=== PATIENT | female | born 1965 | race Caucasian/White ===

== ENCOUNTER → 2017-09-13 | Outpatient (CLI) | payer OTHER ==
[~2017-09-13] MED LIST: CEFAZOLIN 1 GM INJ; CEFAZOLIN 2 GM/50 ML (PMX) 50 ML IVPB; INSULIN ASPART [NOVOLOG] 3 ML PEN IV; INSULIN REGULAR, HUMAN 100 UNIT/1 ML 3ML VIAL; MIDAZOLAM 1 MG/ML 2 ML INJ; PROPOFOL 0 ML; ROCURONIUM 50 MG INJ; ROPIVACAINE 0.5 % 30 ML VIAL; SOD CHLORIDE 0.9% 1,000 ML IV
[2017-09-13 10:29] LABS: ADD MAN DIFF? NO
[2017-09-13 10:31] LABS: WHITE BLOOD COUNT 6.5 10^3/ul (4.8-10.8)
[2017-09-13 10:31] LABS: BASOPHILS % 0.5 % (0.0-2.0); EOSINOPHILS # 0.2 10^3/ul (0.0-0.5); EOSINOPHILS % 3.2 % (0.0-7.0); HEMATOCRIT 36.3 % (37.0-47.0); HEMOGLOBIN 12.5 g/dl (12.0-16.0); LYMPHOCYTES # 2.2 10^3/ul (0.8-2.9); LYMPHOCYTES % 33.2 % (15.0-51.0); MEAN CORPUSCULAR HEMOGLOBIN 27.7 pg (29.0-33.0); MEAN CORPUSCULAR HGB CONC 34.4 g/dl (32.0-37.0); MEAN CORPUSCULAR VOLUME 80.5 fl (82.0-101.0); MEAN PLATELET VOLUME 10.5 fl (7.4-10.4); MONOCYTE # 0.4 10^3/ul (0.3-0.9); MONOCYTES % 6.3 % (0.0-11.0); NEUTROPHIL # 3.7 10^3/ul (1.6-7.5); NEUTROPHILS % 56.6 % (39.0-77.0); PLATELET COUNT 340 10^3/UL (140-415); RED BLOOD COUNT 4.51 10^6/ul (4.20-5.40); RED CELL DISTRIBUTION WIDTH 12.4 % (11.5-14.5)
[2017-09-13] MEDS: INSULIN REGULAR, HUMAN 100 UNIT/1 ML 3ML VIAL IV ×2 (10:41→11:17)
[2017-09-13 10:52] LABS: ALANINE AMINOTRANSFERASE 16 IU/L (13-69); ALBUMIN 3.9 g/dl (3.3-4.9); ALBUMIN/GLOBULIN RATIO 1.18; ALKALINE PHOSPHATASE 139 IU/L (42-121); ANION GAP 13 (8-16); ASPARTATE AMINO TRANSFERASE 13 IU/L (15-46); BILIRUBIN,INDIRECT 0.3 mg/dl (0-1.1); BILIRUBIN,TOTAL 0.3 mg/dl (0.2-1.3); CARBON DIOXIDE 31 mmol/L (21-31); CHLORIDE 98 mmol/L (97-110); TOTAL PROTEIN 7.2 g/dl (6.1-8.1)
[2017-09-13 10:59] LABS: PROTIME 11.1 Sec (11.9-14.9); PT RATIO 0.9
[2017-09-13 11:05] LABS: BLOOD UREA NITROGEN 15 mg/dl (7-20); CALCIUM 9.6 mg/dl (8.4-10.2); CREATININE 0.87 mg/dl (0.44-1.00); POTASSIUM 4.9 mmol/L (3.5-5.1); SODIUM 137 mmol/L (135-144)
[2017-09-13 11:06] LABS: GLUCOSE 458 mg/dl (70-220)
[2017-09-13 12:20] LABS: HEMOGLOBIN A1C 12.1 % (0-5.9)
== END | disposition home or self-care (01) ==
LOC: SDS 09:02 → LAB 09:02
DX: Z01.818 Encounter for other preprocedural examination (principal)
CPT/HCPCS: 71045; 80053; 82962; 83036; 85025; 85610; 85730; 93005

== ENCOUNTER 2017-10-14 07:41 | Inpatient (IN) | payer OTHER ==
[2017-10-14] MEDS: SOD CHLORIDE 0.9% 1,000 ML IV (06:00)
[~2017-10-14 07:41] MED LIST changes: -CEFAZOLIN 1 GM INJ; -INSULIN ASPART [NOVOLOG] 3 ML PEN IV; -INSULIN REGULAR, HUMAN 100 UNIT/1 ML 3ML VIAL; -MIDAZOLAM 1 MG/ML 2 ML INJ; -PROPOFOL 0 ML; -ROPIVACAINE 0.5 % 30 ML VIAL; -SOD CHLORIDE 0.9% 1,000 ML IV
[2017-10-14] MEDS ORDERED: ROCURONIUM 50 MG INJ (08:07)
[2017-10-14] MEDS ORDERED: PROPOFOL 20 ML (08:07)
[2017-10-14] MEDS ORDERED: CEFAZOLIN 1 GM INJ (08:10)
[2017-10-14] MEDS ORDERED: ONDANSETRON 4 MG INJ ×2 (08:10→10:28)
[2017-10-14] MEDS ORDERED: DEXAMETHASONE 4 MG/ML 1 ML INJ ×2 (08:11→10:28)
[2017-10-14] MEDS ORDERED: FENTAnyl 50 MCG/ML VIAL (08:23)
[2017-10-14 08:33] LABS: ADD MAN DIFF? NO
[2017-10-14 08:48] LABS: BASOPHILS % 0.5 % (0.0-2.0); EOSINOPHILS # 0.2 10^3/ul (0.0-0.5); EOSINOPHILS % 1.9 % (0.0-7.0); HEMATOCRIT 36.7 % (37.0-47.0); HEMOGLOBIN 12.3 g/dl (12.0-16.0); LYMPHOCYTES # 2.6 10^3/ul (0.8-2.9); LYMPHOCYTES % 32.2 % (15.0-51.0); MEAN CORPUSCULAR HEMOGLOBIN 27.9 pg (29.0-33.0); MEAN CORPUSCULAR HGB CONC 33.5 g/dl (32.0-37.0); MEAN CORPUSCULAR VOLUME 83.2 fl (82.0-101.0); MEAN PLATELET VOLUME 10.2 fl (7.4-10.4); MONOCYTE # 0.5 10^3/ul (0.3-0.9); MONOCYTES % 6.8 % (0.0-11.0); NEUTROPHIL # 4.6 10^3/ul (1.6-7.5); NEUTROPHILS % 58.3 % (39.0-77.0); PLATELET COUNT 338 10^3/UL (140-415); RED BLOOD COUNT 4.41 10^6/ul (4.20-5.40); RED CELL DISTRIBUTION WIDTH 12.8 % (11.5-14.5)
[2017-10-14 08:48] LABS: WHITE BLOOD COUNT 7.9 10^3/ul (4.8-10.8)
[2017-10-14 09:05] LABS: INR 0.82; PARTIAL THROMBOPLASTIN TIME 26.7 Sec (25.0-35.0); PROTIME 11.4 Sec (11.9-14.9); PT RATIO 0.9
[2017-10-14 09:08] LABS: ALANINE AMINOTRANSFERASE 18 IU/L (13-69); ALBUMIN 4.2 g/dl (3.3-4.9); ALBUMIN/GLOBULIN RATIO 1.23; ALKALINE PHOSPHATASE 98 IU/L (42-121); ANION GAP 18 (8-16); ASPARTATE AMINO TRANSFERASE 15 IU/L (15-46); BILIRUBIN,INDIRECT 0.5 mg/dl (0-1.1); BILIRUBIN,TOTAL 0.5 mg/dl (0.2-1.3); BLOOD UREA NITROGEN 27 mg/dl (7-20); CALCIUM 9.1 mg/dl (8.4-10.2); CARBON DIOXIDE 29 mmol/L (21-31); CHLORIDE 102 mmol/L (97-110); GLUCOSE 210 mg/dl (70-220); POTASSIUM 4.9 mmol/L (3.5-5.1); SODIUM 144 mmol/L (135-144); TOTAL PROTEIN 7.6 g/dl (6.1-8.1)
[2017-10-14] MEDS ORDERED: ROPIVACAINE 0.2% 20 ML VIAL (09:26)
[2017-10-14] MEDS ORDERED: MIDAZOLAM 1 MG/ML 2 ML INJ (09:28)
[2017-10-14] MEDS ORDERED: FENTAnyl 50 MCG/ML VIAL IV ×4 (09:30→10:30)
[2017-10-14] MEDS ORDERED: KETOROLAC 30 MG INJ IV (09:30)
[2017-10-14] MEDS ORDERED: ONDANSETRON 4 MG INJ IV ×3 (09:30→11:30)
[2017-10-14] MEDS ORDERED: PHENYLephrine (100 MCG/ML) 5ML SYG (09:35)
[2017-10-14] MEDS ORDERED: LABETALOL HCL 20MG INJ (10:00)
[2017-10-14] MEDS ORDERED: HYDROmorphONE 2 MG/ML SYG (10:04)
[2017-10-14] MEDS: SODIUM CHLORIDE 0.9% 1L IRRIG IRR (10:24)
[2017-10-14] MEDS ORDERED: SUGAMMADEX SODIUM 200 MG/2 ML VIAL IV ×2 (10:28→10:46)
[2017-10-14] MEDS ORDERED: ACETAMINOPHEN 1000MG/100ML IV 100 ML (10:28)
[2017-10-14] MEDS ORDERED: KETOROLAC 30 MG INJ (10:28)
[2017-10-14] MEDS ORDERED: METOCLOPRAMIDE 10 MG INJ (10:28)
[2017-10-14] MEDS ORDERED: EPHEDrine SULFATE 50 MG/5 ML SYG IV (10:30)
[2017-10-14] MEDS ORDERED: DIPHENHYDRAMINE 50 MG INJ IV (10:30)
[2017-10-14] MEDS ORDERED: OXYCODONE/ACETAMINOPHEN (5/325) TAB PO ×2 (10:30)
[2017-10-14] MEDS ORDERED: ALBUMIN HUMAN 5% 250 ML IV (10:30)
[2017-10-14] MEDS ORDERED: METOCLOPRAMIDE 10 MG INJ IV (10:30)
[2017-10-14] MEDS ORDERED: HYDROmorphONE (0.2 MG/ML) 10ML SYG IV ×3 (10:30)
[2017-10-14] MEDS ORDERED: hydrALAzine 20 MG INJ IV (10:30)
[2017-10-14] MEDS ORDERED: LABETALOL HCL 20MG INJ IV (10:30)
[2017-10-14] MEDS: MEPERIDINE 25 MG INJ IV (11:25)
[2017-10-14] MEDS ORDERED: ACETAMINOPHEN 1000MG/100ML IV 100 ML IVPB (11:30)
[2017-10-14] MEDS: HYDROmorphONE (0.2 MG/ML) 10ML SYG IV ×2 (12:19→12:31)
[2017-10-14 12:50] LABS: HEMOGLOBIN A1C 11.6 % (0-5.9)
[2017-10-14] MEDS ORDERED: ALBUTEROL/IPRATROPIUM (NEB) 3 ML AMP HHN (13:00)
[2017-10-14] MEDS ORDERED: GLUCAGON 1 MG INJ IM (13:30)
[2017-10-14] MEDS ORDERED: DEXTROSE 50% 50 ML SYRINGE IV ×2 (13:30)
[2017-10-14] MEDS ORDERED: GLUCOSE GEL 15 GRAM TUBE PO ×2 (13:30)
[2017-10-14] MEDS ORDERED: GLUCOSE GEL 15 GRAM TUBE BUCCAL (13:30)
[2017-10-14] MEDS: morphine 2 MG INJ IV ×2 (14:09→17:18)
[2017-10-14] MEDS: HYDROCODONE/APAP (5/325) TAB PO (15:52)
[2017-10-14] MEDS: D5W-0.45 NACL + KCL 20 MEQ 1,000 ML IV ×2 (15:53→19:05)
[2017-10-14] MEDS: metFORMIN 500 MG TAB PO (17:17)
[2017-10-14] MEDS: INSULIN ASPART [NOVOLOG] 3 ML PEN SC ×2 (17:21→20:59)
[2017-10-14] MEDS: ATORVASTATIN 10 MG TAB PO (20:53)
[2017-10-14] MEDS: GABAPENTIN 300 MG CAP PO (20:53)
[2017-10-14] MEDS: SOD CHLORIDE 0.45% 1,000 ML IV (22:22)
[2017-10-15] MEDS: morphine 2 MG INJ IV ×5 (01:41→21:58)
[2017-10-15 05:49] LABS: ADD MAN DIFF? NO
[2017-10-15 05:56] LABS: WHITE BLOOD COUNT 12.3 10^3/ul (4.8-10.8)
[2017-10-15 05:57] LABS: BASOPHILS % 0.2 % (0.0-2.0); EOSINOPHILS % 0.2 % (0.0-7.0); HEMATOCRIT 32.2 % (37.0-47.0); HEMOGLOBIN 10.7 g/dl (12.0-16.0); LYMPHOCYTES # 3.5 10^3/ul (0.8-2.9); LYMPHOCYTES % 28.8 % (15.0-51.0); MEAN CORPUSCULAR HEMOGLOBIN 28.2 pg (29.0-33.0); MEAN CORPUSCULAR HGB CONC 33.2 g/dl (32.0-37.0); MEAN CORPUSCULAR VOLUME 84.7 fl (82.0-101.0); MEAN PLATELET VOLUME 10.3 fl (7.4-10.4); MONOCYTE # 0.8 10^3/ul (0.3-0.9); MONOCYTES % 6.5 % (0.0-11.0); NEUTROPHIL # 7.8 10^3/ul (1.6-7.5); NEUTROPHILS % 63.9 % (39.0-77.0); PLATELET COUNT 308 10^3/UL (140-415); RED CELL DISTRIBUTION WIDTH 12.9 % (11.5-14.5)
[2017-10-15 06:20] LABS: ANION GAP 15 (8-16); BLOOD UREA NITROGEN 18 mg/dl (7-20); CALCIUM 8.4 mg/dl (8.4-10.2); CARBON DIOXIDE 27 mmol/L (21-31); CHLORIDE 107 mmol/L (97-110); CREATININE 0.76 mg/dl (0.44-1.00); GLUCOSE 138 mg/dl (70-220); POTASSIUM 4.5 mmol/L (3.5-5.1); SODIUM 144 mmol/L (135-144)
[2017-10-15] MEDS: INSULIN ASPART [NOVOLOG] 3 ML PEN SC ×4 (07:50→21:00)
[2017-10-15] MEDS: metFORMIN 500 MG TAB PO ×2 (08:34→17:57)
[2017-10-15] MEDS: PANTOPRAZOLE (EC) 40 MG TAB PO (08:34)
[2017-10-15] MEDS: CITALOPRAM 20 MG TAB PO (08:35)
[2017-10-15] MEDS: glipiZIDE 5 MG TAB PO (08:35)
[2017-10-15] MEDS: BENAZEPRIL 20 MG TAB PO (08:36)
[2017-10-15] MEDS: INSULIN GLARGINE [LANtus] 3 ML PEN SC (08:39)
[2017-10-15] MEDS: SOD CHLORIDE 0.45% 1,000 ML IV ×2 (08:41→21:10)
[2017-10-15] MEDS: GABAPENTIN 300 MG CAP PO (21:11)
[2017-10-15] MEDS: ATORVASTATIN 10 MG TAB PO (21:11)
[2017-10-16] MEDS: HYDROCODONE/APAP (5/325) TAB PO (00:05)
[2017-10-16] MEDS: SOD CHLORIDE 0.45% 1,000 ML IV ×2 (04:00→14:00)
[2017-10-16 05:52] LABS: ADD MAN DIFF? NO
[2017-10-16 05:57] LABS: WHITE BLOOD COUNT 10.2 10^3/ul (4.8-10.8)
[2017-10-16 05:57] LABS: BASOPHILS % 0.3 % (0.0-2.0); EOSINOPHILS # 0.1 10^3/ul (0.0-0.5); EOSINOPHILS % 0.9 % (0.0-7.0); HEMATOCRIT 31.3 % (37.0-47.0); HEMOGLOBIN 10.4 g/dl (12.0-16.0); LYMPHOCYTES # 3.1 10^3/ul (0.8-2.9); LYMPHOCYTES % 30.3 % (15.0-51.0); MEAN CORPUSCULAR HEMOGLOBIN 28.4 pg (29.0-33.0); MEAN CORPUSCULAR HGB CONC 33.2 g/dl (32.0-37.0); MEAN CORPUSCULAR VOLUME 85.5 fl (82.0-101.0); MEAN PLATELET VOLUME 10.2 fl (7.4-10.4); MONOCYTE # 0.6 10^3/ul (0.3-0.9); MONOCYTES % 6.1 % (0.0-11.0); NEUTROPHIL # 6.4 10^3/ul (1.6-7.5); PLATELET COUNT 284 10^3/UL (140-415); RED BLOOD COUNT 3.66 10^6/ul (4.20-5.40); RED CELL DISTRIBUTION WIDTH 12.8 % (11.5-14.5)
[2017-10-16 06:50] LABS: ALANINE AMINOTRANSFERASE 28 IU/L (13-69); ALBUMIN/GLOBULIN RATIO 1.07; ALKALINE PHOSPHATASE 71 IU/L (42-121); ANION GAP 8 (8-16); ASPARTATE AMINO TRANSFERASE 33 IU/L (15-46); BILIRUBIN,INDIRECT 0.3 mg/dl (0-1.1); BILIRUBIN,TOTAL 0.3 mg/dl (0.2-1.3); BLOOD UREA NITROGEN 11 mg/dl (7-20); CALCIUM 8.1 mg/dl (8.4-10.2); CARBON DIOXIDE 31 mmol/L (21-31); CHLORIDE 107 mmol/L (97-110); CREATININE 0.76 mg/dl (0.44-1.00); GLUCOSE 246 mg/dl (70-220); POTASSIUM 4.9 mmol/L (3.5-5.1); SODIUM 141 mmol/L (135-144); TOTAL PROTEIN 5.8 g/dl (6.1-8.1)
[2017-10-16] MEDS: PANTOPRAZOLE (EC) 40 MG TAB PO (08:08)
[2017-10-16] MEDS: CITALOPRAM 20 MG TAB PO (08:09)
[2017-10-16] MEDS: metFORMIN 500 MG TAB PO (08:09)
[2017-10-16] MEDS: BENAZEPRIL 20 MG TAB PO (08:09)
[2017-10-16] MEDS: glipiZIDE 5 MG TAB PO (08:09)
[2017-10-16] MEDS: morphine 2 MG INJ IV ×3 (08:10→15:58)
[2017-10-16] MEDS: INSULIN ASPART [NOVOLOG] 3 ML PEN SC ×2 (08:14→12:03)
[2017-10-16] MEDS: INSULIN GLARGINE [LANtus] 3 ML PEN SC (08:16)
== END 2017-10-16 16:55 | disposition home or self-care (01) | DRG 416 ==
LOC: SDS 07:41 → REC 11:06 → MS2 12:55
PROVIDERS: Surgery Surgical Oncology
PROC: 0FT40ZZ Resection of Gallbladder, Open Approach (ICD-10-PCS; principal; 2017-10-14 09:00)
PROC: 0FJ44ZZ Inspection of Gallbladder, Percutaneous Endoscopic Approach (ICD-10-PCS; 2017-10-14 09:00)
DX: K80.20 Calculus of gallbladder without cholecystitis without obstruction (principal); I10 Essential (primary) hypertension; E11.9 Type 2 diabetes mellitus without complications; E78.5 Hyperlipidemia, unspecified; F32.9 Major depressive disorder, single episode, unspecified; Z53.31 Laparoscopic surgical procedure converted to open procedure; Z79.4 Long term (current) use of insulin
CPT/HCPCS: 71045; 72170; 74018; 80048; 80053; 82962; 83036; 85025; 85610; 85730; 88304; 93005

== ENCOUNTER 2018-10-17 12:43 | Emergency (ER) | payer OTHER ==
[2018-10-17 15:08] LABS: ADD MAN DIFF? NO
[2018-10-17 15:09] LABS: MODE ROOM AIR; MetHgb Venous 0.3 %; Sample Type Blood venous; Site VENOUS LINE; Venous COHb 0.3 %; Venous Fraction OxyHgb 76.8 %; Venous Oxygen Sat 77.3 mmHG (55.0-75.0); Venous Total Hemglobin 11.5 g/dl
[2018-10-17] MEDS: SOD CHLORIDE 0.9% 600 ML IV (15:09)
[2018-10-17 15:11] LABS: BASOPHIL # 0.1 10^3/ul (0.0-0.1); BASOPHILS % 0.6 % (0.0-2.0); EOSINOPHILS % 0.4 % (0.0-7.0); HEMATOCRIT 38.7 % (37.0-47.0); HEMOGLOBIN 13.4 g/dl (12.0-16.0); LYMPHOCYTES # 3.3 10^3/ul (0.8-2.9); LYMPHOCYTES % 42.4 % (15.0-51.0); MEAN CORPUSCULAR HEMOGLOBIN 27.1 pg (29.0-33.0); MEAN CORPUSCULAR HGB CONC 34.6 g/dl (32.0-37.0); MEAN CORPUSCULAR VOLUME 78.2 fl (82.0-101.0); MEAN PLATELET VOLUME 10.5 fl (7.4-10.4); MONOCYTE # 0.5 10^3/ul (0.3-0.9); MONOCYTES % 6.7 % (0.0-11.0); NEUTROPHIL # 3.9 10^3/ul (1.6-7.5); NEUTROPHILS % 49.6 % (39.0-77.0); PLATELET COUNT 311 10^3/UL (140-415); RED BLOOD COUNT 4.95 10^6/ul (4.20-5.40); RED CELL DISTRIBUTION WIDTH 12.7 % (11.5-14.5)
[2018-10-17 15:11] LABS: WHITE BLOOD COUNT 7.8 10^3/ul (4.8-10.8)
[2018-10-17] MEDS ORDERED: INSULIN REGULAR 10 ML INJ IV (15:29)
[2018-10-17 15:33] LABS: PROTIME 11.2 Sec (11.9-14.9); PT RATIO 0.9
[2018-10-17 15:34] LABS: ALANINE AMINOTRANSFERASE 23 IU/L (13-69); ALBUMIN 3.5 g/dl (3.3-4.9); ALKALINE PHOSPHATASE 138 IU/L (42-121); ANION GAP 10 (5-13); ASPARTATE AMINO TRANSFERASE 23 IU/L (15-46); BILIRUBIN,INDIRECT 0.5 mg/dl (0-1.1); BILIRUBIN,TOTAL 0.5 mg/dl (0.2-1.3); BLOOD UREA NITROGEN 15 mg/dl (7-20); CALCIUM 8.5 mg/dl (8.4-10.2); CARBON DIOXIDE 30 mmol/L (21-31); CHLORIDE 90 mmol/L (97-110); CREATININE 0.55 mg/dl (0.44-1.00); Estimated GFR > 60 mL/min (>60); MAGNESIUM 1.6 mg/dl (1.7-2.5); PARTIAL THROMBOPLASTIN TIME 22.2 Sec (23.0-35.0); PHOSPHORUS 3.9 mg/dl (2.5-4.9); POTASSIUM 3.8 mmol/L (3.5-5.1); SODIUM 130 mmol/L (135-144); TOTAL PROTEIN 6.4 g/dl (6.1-8.1)
[2018-10-17 15:50] LABS: GLUCOSE 635 mg/dl (70-220)
[2018-10-17 15:53] LABS: TROPONIN-I < 0.010 ng/ml (0.000-0.120)
[2018-10-17] MEDS: INSULIN LISPRO 100 UNIT/ML VIAL SC (16:03)
[2018-10-17] MEDS: INSULIN REGULAR, HUMAN 100 UNIT/1 ML 3ML VIAL IV (16:05)
[2018-10-17 17:19] LABS: ADD UMIC YES; UR ASCORBIC ACID NEGATIVE (NEGATIVE); UR BACTERIA FEW /HPF (NONE SEEN); UR BILIRUBIN (Dip) NEGATIVE (NEGATIVE); UR BLOOD (Dip) NEGATIVE (NEGATIVE); UR CLARITY CLEAR (CLEAR); UR COLOR STRAW (YELLOW); UR GLUCOSE (Dip) 3+ mg/dL (NEGATIVE); UR KETONES (Dip) TRACE mg/dL (NEGATIVE); UR LEUKOCYTE ESTERASE (Dip) NEGATIVE Leu/ul (NEGATIVE); UR NITRITE (Dip) NEGATIVE (NEGATIVE); UR RBC 1 /HPF (0-5); UR SPECIFIC GRAVITY (Dip) 1.022 (1.003-1.030); UR SQUAMOUS EPITHELIAL CELL FEW /HPF (FEW); UR TOTAL PROTEIN (Dip) 1+ mg/dl (NEGATIVE); UR UROBILINOGEN (Dip) NEGATIVE (NEGATIVE); UR WBC 4 /HPF (0-5)
[2018-10-17] MEDS ORDERED: INSULIN LISPRO 100 UNIT/ML VIAL SC (18:06)
== END 2018-10-17 18:35 | disposition home or self-care (01) ==
LOC: E/R 12:43
DX: E11.65 Type 2 diabetes mellitus with hyperglycemia (principal); I10 Essential (primary) hypertension; Z79.4 Long term (current) use of insulin
CPT/HCPCS: 36415; 80053; 81001; 82803; 82962; 83735; 84100; 84484; 85025; 85610; 85730; 96372; 96374; 99284-25